=== PATIENT | female | born 1970 | race Caucasian/White ===

== ENCOUNTER 2024-07-30 09:49 | Emergency (ER) | payer OTHER ==
[~2024-07-30] VITALS: Ht 157.5 cm; Wt 62.6 kg
[2024-07-30 10:04] VITALS: BP 136/83; PULSE 79; RESP 18; TEMP 98.6; O2SAT 99
--- NOTE | 2024-07-30 10:11 | NUR ---
to bed 7
--- NOTE | 2024-07-30 10:24 | NUR ---
Patient being evaluated by physician at bedside.
--- NOTE | 2024-07-30 10:37 | NUR ---
Patient taken to CT
--- NOTE | 2024-07-30 11:19 | NUR ---
Patient returned from CT
[2024-07-30 11:30] VITALS: O2SAT 96
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
[2024-07-30 12:03] VITALS: TEMP 97.6
--- NOTE | 2024-07-30 13:30 | NUR ---
Patient is resting on bed, son at bedside. Call light within reach. All needs met by staff.
[2024-07-30] MEDS ORDERED: NAPR-337 PO (13:37)
[2024-07-30 14:00] VITALS: BP 122/80; PULSE 72; RESP 18; O2SAT 96
--- NOTE | 2024-07-30 14:00 | NUR ---
Patient discharged with v/s stable. Written and verbal after care instructions given. Patient alert, oriented and verbalized understanding of instructions. Ambulatory with steady gait. All questions addressed prior to discharge. ID band removed. Patient advised to follow up with PMD. Rx of Naproxen given. Opportunity to ask questions provided and answered.
--- NOTE | 2024-07-30 14:20 | NUR ---
Chart checked and completed. The patient's care was reviewed and supervised by JULIANA BOBO RN.
== END 2024-07-30 14:00 | disposition home or self-care (01) ==
LOC: MED 09:49
DX: S16.1XXA Strain of muscle, fascia and tendon at neck level, initial encounter (principal); S29.011A Strain of muscle and tendon of front wall of thorax, initial encounter; Z79.899 Other long term (current) drug therapy; V89.2XXA Person injured in unspecified motor-vehicle accident, traffic, initial encounter; Y93.89 Activity, other specified; Y92.410 Unspecified street and highway as the place of occurrence of the external cause; Y99.8 Other external cause status
CPT/HCPCS: 71111; 72125; 99285